=== PATIENT | female | born 1980 | race Caucasian/White ===

== ENCOUNTER 2017-09-07 16:57 | Emergency (ER) | payer BC ==
[~2017-09-07] VITALS: Ht 162.6 cm; Wt 79.0 kg
[2017-09-07 17:04] VITALS: BP 126/72; PULSE 96; RESP 16; TEMP 98.4; O2SAT 97
[2017-09-07] MEDS ORDERED: DIBU1OIN RECTAL (17:37)
[2017-09-07] MEDS ORDERED: NORC5TAB PO (17:37)
--- NOTE | 2017-09-07 17:38 | PD ---
HPI Chief Complaint: GI Complaint Time Seen by Provider: 17:28 Travel History International Travel<30 days: No Contact w/Intl Traveler<30days: No Traveled to known affect area: No History of Present Illness HPI The patient is a 37-year-old female who presents to the emergency department for rectal pain. The patient states that she developed rectal pain several days ago, does have a history of external hemorrhoids, however, they have only been painful for day 2 and then resolved. The patient states her hemorrhoid is now continuously painful. The patient first developed hemorrhoids while she was . She does note a history of constipation and takes stool softeners on a regular basis. She denies any bright rectal blood per rectum. She denies any trauma to the perirectal area. She denies any fever, chills, or sweats. Symptoms are moderate. PFSH Past Medical History Blood Disorders: No Anxiety: Yes Depression: Yes ?: Not LMP: ABLATION Past Surgical History Other Surgery: Yes (NASAL) Social History Alcohol Use: No Tobacco Use: No Substance Use: No Allergies-Medications (Allergen,Severity, Reaction): Coded Allergies: No Known Allergies (Unverified , 09/07/17) Reported Meds & Prescriptions Reported Meds & Active Scripts Active No Active Prescriptions or Reported Medications Review of Systems Except as stated in HPI: all other systems reviewed are Neg General / Constitutional: No: Fever Gastrointestinal: Positive: Other (As noted in the history of present illness) , No: Nausea, Vomiting, Abdominal Pain Skin: No Rash Physical Exam Narrative GENERAL: Awake, alert, nontoxic-appearing 37-year-old female who appears her stated age and appears in moderate discomfort. The patient was examined in the presence of a female nurse. SKIN: Focused skin assessment warm/dry. HEAD: Atraumatic. Normocephalic. EYES: No injection or drainage. ENT: No nasal bleeding or discharge. Mucous membranes pink and moist. NECK: Trachea midline. No JVD. GASTROINTESTINAL: Abdomen soft, non-tender, nondistended. Rectal: Exam was performed in the presence of a female nurse, Marisa. External examination reveals a large hemorrhoid is approximately 3 cm in diameter with thrombosis noted on approximately two thirds of the hemorrhoid. MUSCULOSKELETAL: No obvious deformities. No clubbing. No cyanosis. No edema. NEUROLOGICAL: Awake and alert. No obvious cranial nerve deficits. Motor grossly within normal limits. Normal speech. PSYCHIATRIC: Appropriate mood and affect; insight and judgment normal. Data Data Last Documented VS Vital Signs Date Time Temp Pulse Resp B/P (MAP) Pulse Ox O2 Delivery O2 Flow Rate FiO2 09/07/17 17:04 98.4 96 16 126/72 (90) 97 MDM Medical Decision Making Medical Screen Exam Complete: Yes Emergency Medical Condition: Yes Medical Record Reviewed: Yes Differential Diagnosis Differential diagnosis includes external hemorrhoid, anal fissure, rectal prolapse, anal fissure, perirectal abscess. Narrative Course The patient has an external hemorrhoid on examination that is partially thrombosed. I had a discussion with the patient regarding the risk and benefits of partial thrombectomy for the thrombosed hemorrhoid. The patient was agreeable. Patient had topical anesthetic sprayed over the affected area and a small incision was made with 11 incisional blade removing a large amount of blood clot. The patient was advised that she would have some bright rectal bleeding from the hemorrhoid of the next several days. Is advised to follow-up with her primary physician and may benefit from outpatient follow-up with gastroenterology. Procedures Procedure Narrative The risk and benefits of partial thrombectomy for the external hemorrhoid was discussed with the patient. She was agreeable. The area was anesthetized with topical spray and a #11 incisional blade was used to open the area with a 1 cm incision removing a large amount of thrombosed hemorrhoid. The patient tolerated the procedure without difficulty. There was minimal venous bleeding noted after the incision. Diagnosis Primary Impression: Thrombosed external hemorrhoid Patient Instructions: General Instructions Additional Instructions: Follow-up with gastroenterology. You will experience some bright rectal bleeding over the next several days. Medications as directed. Continue stool softeners and drink plenty fluids to stay hydrated. Med/Other Pt SpecificInfo: Prescription(s) given Scripts Hydrocodone-Acetaminophen ([place]) 5 Mg-325 Mg Tab 1 TAB PO Q6H Y for PAIN, #12 TAB 0 Refills Prov: Gary Colon MD 09/07/17 Dibucaine Rectal (Dibucaine Rectal) 1% Oint 1 APPLIC RECTAL QID Y for PAIN/ITCHING, #60 GM 0 Refills Prov: Gary Colon MD 09/07/17 Disposition: 01 DISCHARGE HOME Condition: Stable Gary Colon MD September 07, 2017 17:38
== END 2017-09-07 17:52 | disposition home or self-care (01) ==
LOC: PHEFT 16:57
DX: K64.5 Perianal venous thrombosis (principal); K59.00 Constipation, unspecified; F32.9 Major depressive disorder, single episode, unspecified; F41.9 Anxiety disorder, unspecified
CPT/HCPCS: 46083